=== PATIENT | male | born 1970 | race Caucasian/White ===

== ENCOUNTER 2021-12-16 14:30 | Emergency (ER) | payer BC, SELFPAY ==
[2021-12-16 14:32] VITALS: BP 141/77; PULSE 87; RESP 16; TEMP 37.1; O2SAT 98
--- NOTE | 2021-12-16 15:32 | ED.NEUROSD ---
HPI - Neuro Symptoms/Deficit General Chief Complaint: Neuro Symptoms/Deficit Stated Complaint: numbness and tingling to hands Time Seen by Provider: 12/16/21 15:19 History of Present Illness HPI Narrative: Patient states that she has been doing a lot of work recently with electric drills, he woke up and noticed that both hands seem to have some tingling and pins and needle sensation, only on the palmar aspect of his hands. No prior history of carpal tunnel syndrome. He does have a history of Raynaud's, but his fingers are not blue. No weakness. No headache Related Data Allergies Allergy/AdvReac Type Severity Reaction Status Date / Time No Known Allergies Allergy Verified 12/16/21 15:21 Review of Systems Review of Systems: M/S: No joint pain. SKIN: No rash. NEURO: Tingling bilateral hands PMFSH Family History Family History Mother Hypertension Cerebrovascular accident, Onset Age: 69 Patient's mother is Father Hypertension Family history of chronic obstructive pulmonary disease, Onset Age: 69 Sibling Family history of premature coronary heart disease, Onset Age: 36 Family history of mental disorder Hypertension, Onset Age: 49 Patient's brother is in good health, Onset Age: 48 Family history of seizure disorder Patient's brother is Social History Social History Smoking status: Never smoker Alcohol intake: never Exam Narrative: EXAMINATION OF ORGAN SYSTEMS/BODY AREAS: Constitutional: Vital signs per nursing GENERAL:[No acute distress, non-toxic appearing.] HEAD: Normal with no signs of head trauma. EYES: EOMI, conjunctiva normal LUNGS: Nonlabored breathing. HEART: [Regular rate and rhythm] ABD: No distention EXT: Normal range of motion, good strength both hands SKIN: [No rashes or lesions.] NEURO: [Alert and oriented x 3. Paresthesias in the median distribution of both hands PSYCH: Normal affect Course Vital Signs Vital signs: Vital Signs Temperature 98.8 F 12/16/21 14:32 Pulse Rate 87 12/16/21 14:32 Respiratory Rate 16 12/16/21 14:32 Blood Pressure 141/77 H 12/16/21 14:32 Pulse Oximetry 98 12/16/21 14:32 Oxygen Delivery Room Air 12/16/21 14:32 Temperature 98.8 F 12/16/21 14:32 Pulse Rate 87 12/16/21 14:32 Respiratory Rate 16 12/16/21 14:32 Blood Pressure 141/77 H 12/16/21 14:32 Pulse Oximetry 98 12/16/21 14:32 Oxygen Delivery Room Air 12/16/21 14:32 MDM - Neuro Symptoms/Deficit MDM Narrative Medical decision making narrative: Patient presents with bilateral hand tingling, in a distribution consistent with carpal tunnel syndrome, very low concern for CVA/TIA given the distribution, unlikely Raynaud's without any deficiencies in perfusion, patient reassured and given wrist support prescriptions and follow-up to hand surgery. Return precautions provided. Differential Diagnosis Differential diagnosis: Likely carpal tunnel syndrome and peripheral neuropathy; Unlikely cerebrovascular accident or transient cerebral ischemia Discharge Plan Discharge Clinical Impression: Carpal tunnel syndrome Patient Disposition: Home, Self-Care Condition: Stable Instructions: Antibiotic Form, Paresthesia (ED) Additional Instructions: Please wear the wrist splints, including at night, and you can call your doctor tomorrow and if symptoms don't improve or if they get worse and you get more weak, follow up with the hand surgeon. Prescriptions: New (DME) Wrist Brace Large Misc See Rx Instructions .Route Qty: 1 0RF Rx Instructions: As directed (DME) Wrist Brace Large Misc See Rx Instructions .Route Qty: 1 0RF Rx Instructions: As directed Follow-up/Referrals: Dima Toussaint MD [Physician] - 2 Days Tigist,Dima Willoughby MD [Primary Care Provider] -
== END 2021-12-16 15:53 | disposition home or self-care (01) ==
PROVIDERS: Emergency Provider Emergency Medicine; PCP Family Medicine
DX: G56.03 Carpal tunnel syndrome, bilateral upper limbs (principal); I73.00 Raynaud's syndrome without gangrene
CPT/HCPCS: 99283